=== PATIENT | female | born 1950 | race Asian ===

== ENCOUNTER 2022-03-29 18:49 | Emergency (ER) | payer OTHER ==
[2022-03-29 18:56] VITALS: BP 154/75; PULSE 82; RESP 18; TEMP 97.7; BMI 22.0
[2022-03-29 21:54] LABS: BASO % 0.8 % (0-2.0); EOS % 1.8 % (0-4.5); HEMATOCRIT 27.4 % (32.4-45.2); HEMOGLOBIN 8.9 GM/dL (10.7-15.3); LYMPH % 43.6 % (8-40); MCH 20.9 pg (25.7-33.7); MCHC 32.6 g/dl (32.0-36.0); MEAN CELL VOLUME 64.2 fl (80-96); MEAN PLT VOLUME 8.7 fl (7.5-11.1); MONO % 25.6 % (3.8-10.2); NEUT % 28.2 % (42.8-82.8); PLATELET COUNT 345 10^3/uL (134-434); RBC 4.27 M/mm3 (3.60-5.2)
[2022-03-29 22:07] LABS: URINE APPEARANCE CLEAR; URINE BILIRUBIN NEGATIVE (NEGATIVE); URINE COLOR YELLOW; URINE GLUCOSE (UA) NEGATIVE (NEGATIVE); URINE KETONE NEGATIVE (NEGATIVE); URINE LEUK ESTERASE NEGATIVE (NEGATIVE); URINE NITRITE NEGATIVE (NEGATIVE); URINE PROTEIN NEGATIVE (NEGATIVE); URINE UROBILINOGEN 0.2 mg/dL (0.2-1.0)
[2022-03-29 22:15] LABS: ALBUMIN 3.7 g/dl (3.4-5.0); BLOOD UREA NITROGEN 15.1 mg/dL (7-18)
[2022-03-29 22:18] LABS: CREATININE 0.9 mg/dL (0.55-1.3)
[2022-03-29 22:20] LABS: TOT PROT 8.2 g/dl (6.4-8.2)
[2022-03-29 22:31] LABS: BILIRUBIN,TOTAL 1.1 mg/dL (0.2-1)
[2022-03-29 23:28] LABS: ANISOCYTOSIS 1+; MACROCYTOSIS 0; PLATELET ESTIMATE NORMAL
== END 2022-03-29 23:48 | disposition home or self-care (01) ==
LOC: JER 18:49
DX: R50.9 Fever, unspecified (principal)
CPT/HCPCS: 36415; 80053; 81003; 82272; 85025; 87040; 87086; 99283-25

== ENCOUNTER 2022-08-30 04:39 | Day surgery (SDC) | payer OTHER ==
[2022-08-28 11:35] VITALS: BMI 22.1
[2022-08-30 09:28] VITALS: TEMP 97.6
[2022-08-30 10:18] VITALS: BP 148/50; PULSE 63; RESP 12
== END 2022-08-30 10:36 | disposition home or self-care (01) ==
LOC: JASU-ENDO 04:39
PROVIDERS: ATTEND Internal Medicine Gastroenterology
PROC: 0DB68ZX Excision of Stomach, Via Natural or Artificial Opening Endoscopic, Diagnostic (ICD-10-PCS; 2022-08-30)
PROC: 0DB78ZX Excision of Stomach, Pylorus, Via Natural or Artificial Opening Endoscopic, Diagnostic (ICD-10-PCS; 2022-08-30)
PROC: 0DB98ZX Excision of Duodenum, Via Natural or Artificial Opening Endoscopic, Diagnostic (ICD-10-PCS; 2022-08-30)
PROC: 0DB78ZX Excision of Stomach, Pylorus, Via Natural or Artificial Opening Endoscopic, Diagnostic (ICD-10-PCS; 2022-08-30)
PROC: 0DB68ZX Excision of Stomach, Via Natural or Artificial Opening Endoscopic, Diagnostic (ICD-10-PCS; 2022-08-30)
PROC: 0DJD8ZZ Inspection of Lower Intestinal Tract, Via Natural or Artificial Opening Endoscopic (ICD-10-PCS; principal; 2022-08-30 09:00)
DX: Z12.11 Encounter for screening for malignant neoplasm of colon (principal); D64.9 Anemia, unspecified; K92.1 Melena; K64.8 Other hemorrhoids; K31.7 Polyp of stomach and duodenum
CPT/HCPCS: 43239; G0121; 88305-TC; 88342-TC

== ENCOUNTER → 2024-11-03 | Day surgery (SDC) | payer OTHER | END | disposition home or self-care (01) | LOC: JMAMMO-SUR 13:29 → JRADUS-SUR 13:29 | PROVIDERS: ATTEND Obstetrics & Gynecology | PROC: 0HBT3ZX Excision of Right Breast, Percutaneous Approach, Diagnostic (ICD-10-PCS; principal; 2024-11-03) | DX: N60.11 Diffuse cystic mastopathy of right breast (principal); N60.31 Fibrosclerosis of right breast; N64.89 Other specified disorders of breast; N63.14 Unspecified lump in the right breast, lower inner quadrant | CPT/HCPCS: 19083; 76942-TC; 77065-TC; 87899; 88305-TC; A4648 ==